=== PATIENT | female | born 1995 | race Caucasian/White ===

== ENCOUNTER → 2022-05-17 | Day surgery (SDC) | payer OTHER ==
[~2022-05-17] MED LIST: ACETAMINOPHEN INJECTION 100 ML IVPB ONE; DEXAMETHASONE SOD PHOSPHATE 4 MG/1 ML VIAL ONE; KETAMINE HCL 500 MG/10 ML VIAL ONE; LIDOCAINE HCL/PF 2% SDV 5ML VIAL ONE; MIDAZOLAM HCL 2 MG/2 ML SINGLE DOSE VIAL ONE; ONDANSETRON 4 MG/2 ML VIAL ONE; PROPOFOL 20 ML ONE; SUCCINYLCHOLINE CHLORIDE 200 MG/10 ML SYRINGE ONE
== END | disposition home or self-care (01) ==
LOC: JASU-SURG 04:01
PROVIDERS: ATTEND Specialist
DX: Z53.8 Procedure and treatment not carried out for other reasons (principal)

== ENCOUNTER → 2022-05-19 | Day surgery (SDC) | payer OTHER ==
[2022-05-18 12:56] VITALS: BMI 55.2
[~2022-05-19] MED LIST changes: +ACETAMINOPHEN 1000 MG/100 ML BAG IVPB ONE; -ACETAMINOPHEN INJECTION 100 ML IVPB ONE; -DEXAMETHASONE SOD PHOSPHATE 4 MG/1 ML VIAL ONE; -KETAMINE HCL 500 MG/10 ML VIAL ONE; +LACTATED RINGERS SOLUTION 1,000 ML IV SCH; -LIDOCAINE HCL/PF 2% SDV 5ML VIAL ONE; -MIDAZOLAM HCL 2 MG/2 ML SINGLE DOSE VIAL ONE; +ONDANSETRON 4 MG/2 ML VIAL IVPUSH PRN; -ONDANSETRON 4 MG/2 ML VIAL ONE; -PROPOFOL 20 ML ONE; -SUCCINYLCHOLINE CHLORIDE 200 MG/10 ML SYRINGE ONE; +oxyCODONE HCL 5 MG TABLET PO PRN
[2022-05-19 13:32] VITALS: RESP 20; TEMP 97.8
[2022-05-19 13:39] VITALS: BP 132/80; PULSE 68
== END | disposition home or self-care (01) ==
LOC: JASU-SURG 03:58
PROVIDERS: ATTEND Obstetrics & Gynecology
PROC: 0UBC7ZX Excision of Cervix, Via Natural or Artificial Opening, Diagnostic (ICD-10-PCS; principal; 2022-05-19 10:00)
DX: N87.1 Moderate cervical dysplasia (principal); N87.0 Mild cervical dysplasia
CPT/HCPCS: 81025; 88305-TC; 88307-TC; 94760